=== PATIENT | male | born 1995 | race Caucasian/White ===

== ENCOUNTER 2019-05-16 06:48 | Emergency (ER) | payer OTHER ==
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
== END 2019-05-16 07:29 | disposition home or self-care (01) ==
LOC: JP.ED 06:48
CPT/HCPCS: 99282; 99284

== ENCOUNTER 2020-03-05 21:26 | Emergency (ER) | payer BC, MEDICAID ==
[2020-03-05 21:50] VITALS: BP 122/80; PULSE 74
--- NOTE | 2020-03-05 22:11 | EDM.PDOC ---
ED HPI GENERAL MEDICAL PROBLEM - General Chief Complaint: ENT Problem Stated Complaint: TOOTH PAIN Time Seen by Provider: 03/05/20 21:55 Source of Information: Reports: Patient, RN History Limitations: Reports: No Limitations - History of Present Illness INITIAL COMMENTS - FREE TEXT/NARRATIVE: 24 yo male here with a couple days of dental pain. Tried to call a dentist today, but did not get a call back. No fever. Has not seen a dentist for a few years. Onset: Gradual Onset Date: 03/03/20 Duration: Day(s):, Getting Worse Location: Reports: Face (anterior mouth) Quality: Reports: Ache Severity: Moderate Improves with: Reports: None Worsens with: Reports: Other (chewing) Context: Reports: Other (See HPI) Associated Symptoms: Reports: No Other Symptoms Treatments SURVEYOR GEODETIC: Reports: Other (see below) (none) Left Upper Jaw Pain Score (Numeric/FACES): 8 - Related Data Allergies Allergy/AdvReac Type Severity Reaction Status Date / Time No Known Allergies Allergy Verified 03/05/20 21:54 Home Meds: Home Meds NK [No Known Home Meds] 05/16/19 [History] Past Medical History Musculoskeletal History: Reports: Fracture, Other (See Below) Other Musculoskeletal History: "Hole in left knee bone". torn rotator cuff Neurological History: Reports: Concussion Psychiatric History: Reports: Anxiety, Depression, Suicide Attempt - Past Surgical History HEENT Surgical History: Reports: Tonsillectomy Social & Family History - Tobacco Use Tobacco Use Status *Q: Light Tobacco User Years of Tobacco use: 2 Packs/Tins Daily: 0.5 - Caffeine Use Caffeine Use: Reports: Coffee, Energy Drinks, Soda - Recreational Drug Use Recreational Drug Use: No ED ROS ENT - Review of Systems Review Of Systems: See Below Constitutional: Reports: No Symptoms HEENT: Reports: Dental Pain Respiratory: Reports: No Symptoms Skin: Reports: No Symptoms Neurological: Reports: No Symptoms ED EXAM, ENT - Physical Exam Exam: See Below Exam Limited By: No Limitations General Appearance: Alert, WD/WN, No Apparent Distress Nose: Normal Inspection, No Blood Mouth/Throat: Normal Inspection, Normal Lips, Normal Oropharynx, Dental Pain, Dental Tenderness, Other (severe decay present diffusely, especially) Head: Atraumatic, Normocephalic. No: Facial Swelling Neck: No: Lymphadenopathy (R), Lymphadenopathy (L) Neurological: Alert, Oriented, CN II-XII Intact, Normal Cognition, No Motor/Sensory Deficits Psychiatric: Normal Affect, Normal Mood Skin: Warm, Dry, Intact, Normal Color, No Rash Course - Vital Signs Last Recorded V/S: Last Vital Signs Temp 35.8 C L 03/05/20 21:54 Pulse 74 03/05/20 21:54 Resp 16 03/05/20 21:54 BP 122/80 03/05/20 21:54 Pulse Ox 99 03/05/20 21:54 Departure - Departure Time of Disposition: 22:11 Disposition: Home, Self-Care 01 Condition: Fair Clinical Impression: Dental decay, Pain, dental - Discharge Information *PRESCRIPTION DRUG MONITORING PROGRAM REVIEWED*: No *COPY OF PRESCRIPTION DRUG MONITORING REPORT IN PATIENT MARICEL: No Referrals: David Velazco MD [Primary Care Provider] - Additional Instructions: Take penicillin as directed until gone. Take ibuprofen 600 mg every 6 hrs with food. Add Howe for added relief OR acetaminophen. See a dentist for repair/removal rissa. F/U with your family doctor in the interim as needed. Sepsis Event Note (ED) - Evaluation Sepsis Screening Result: No Definite Risk - Focused Exam Vital Signs: Vital Signs Temp Pulse Resp BP Pulse Ox 03/05/20 21:54 35.8 C L 74 16 122/80 99 03/05/20 21:49 35.8 C L 74 16 122/80 99
== END 2020-03-05 22:26 | disposition home or self-care (01) ==
LOC: JP.ED 21:26
DX: K02.9 Dental caries, unspecified (principal); F17.210 Nicotine dependence, cigarettes, uncomplicated
CPT/HCPCS: 99282

== ENCOUNTER 2021-10-04 14:01 | Emergency (ER) | payer MEDICAID ==
[2021-10-04 14:30] VITALS: BP 123/79; PULSE 100
[2021-10-04] MEDS ORDERED: Iopamidol 755 Mg/ML 100 ML Bottle IV SCH (15:45)
[2021-10-04] MEDS ORDERED: Sodium Chloride 0.9% 100 ML IV SCH (15:45)
[2021-10-04] MEDS ORDERED: Ketorolac 30 MG/ML SDV IVPUSH ONE (17:23)
== END 2021-10-04 17:46 | disposition home or self-care (01) ==
LOC: JP.ED 14:01
DX: G58.9 Mononeuropathy, unspecified (principal); F17.210 Nicotine dependence, cigarettes, uncomplicated; Z79.899 Other long term (current) drug therapy
CPT/HCPCS: 36415; 73206; 80048; 85025; 96374; 99283; 99284; J1885; J3490; Q9967

== ENCOUNTER 2021-11-17 03:51 | Emergency (ER) | payer MEDICAID, OTHER ==
[2021-11-17] MEDS ORDERED: Acetaminophen/HYDROcodone 325-5 MG Tab PO ONE (04:09)
[2021-11-17 04:21] VITALS: BP 120/93; PULSE 100
[2021-11-17] MEDS ORDERED: Bacitracin Oint 1 GM U/D Packet TOP ONE (04:23)
== END 2021-11-17 05:25 | disposition home or self-care (01) ==
LOC: JP.ED 03:51
DX: T25.221A Burn of second degree of right foot, initial encounter (principal); T23.202A Burn of second degree of left hand, unspecified site, initial encounter; X08.8XXA Exposure to other specified smoke, fire and flames, initial encounter
CPT/HCPCS: 16020; 99283; A9270

== ENCOUNTER 2025-03-17 00:15 | Emergency (ER) | payer MEDICAID ==
[2025-03-17 00:22] VITALS: BP 147/96; PULSE 78
== END 2025-03-17 00:46 | disposition home or self-care (01) ==
LOC: JP.ED 00:15
DX: G89.18 Other acute postprocedural pain (principal); K08.89 Other specified disorders of teeth and supporting structures; F17.200 Nicotine dependence, unspecified, uncomplicated; Z79.899 Other long term (current) drug therapy
CPT/HCPCS: 99282

== ENCOUNTER 2025-03-17 11:27 | Emergency (ER) | payer MEDICAID ==
[2025-03-17 11:41] VITALS: BP 137/92; PULSE 87
== END 2025-03-17 12:07 | disposition home or self-care (01) ==
LOC: JP.ED 11:27
DX: R68.84 Jaw pain (principal)
CPT/HCPCS: 99282

== ENCOUNTER 2025-05-09 06:02 | Emergency (ER) | payer MEDICAID ==
[2025-05-09 06:33] VITALS: BP 125/86; PULSE 106
[2025-05-09 07:21] LABS: CORONAVIRUS COVID-19 NAA NEGATIVE (NEGATIVE); INFLUENZA A NAA POSITIVE (NEGATIVE); INFLUENZA B NAA NEGATIVE (NEGATIVE); RESPIRATORY SYNCYTIAL VIR NAA NEGATIVE (NEGATIVE)
== END 2025-05-09 07:55 | disposition home or self-care (01) ==
LOC: JP.ED 06:02
DX: J10.1 Influenza due to other identified influenza virus with other respiratory manifestations (principal); Z79.899 Other long term (current) drug therapy
CPT/HCPCS: 87637; 99283; 99284